=== PATIENT | female | born 1985 | race Caucasian/White ===

== ENCOUNTER 2025-02-06 12:47 | Outpatient (CLI) | payer OTHER | END 2025-02-06 12:48 | disposition home or self-care (01) | LOC: CSHDTY/OP 12:47 | PROVIDERS: ATTEND Nurse Practitioner Family | DX: Z71.3 Dietary counseling and surveillance (principal); E66.01 Morbid (severe) obesity due to excess calories; E03.8 Other specified hypothyroidism | CPT/HCPCS: 97802 ==